=== PATIENT | male | born 1940 | race Two or more races ===

== ENCOUNTER 2019-03-06 04:42 | Emergency (ER) | payer OTHER ==
[~2019-03-06] VITALS: Ht 160 cm; Wt 71.7 kg
[2019-03-06 04:43] VITALS: Ht 160 cm; Wt 71.7 kg
[2019-03-06 05:24] LABS: BASOPHIL % 0.8 % (0-2); PLATELET COUNT 236 x10^3mcL (130-400)
[2019-03-06 05:25] LABS: RED CELL DISTRIBUTION WIDTH 15.1 % (11.5-14.5)
[2019-03-06 05:34] LABS: CALCIUM 8.3 mg/dL (8.5-10.1); CARBON DIOXIDE 24.9 mmol/L (21-32); CHLORIDE SERUM 94 mmol/L (98-107); CREATININE SERUM 0.9 mg/dL (0.7-1.3); GLUCOSE SERUM 189 mg/dL (74-106); POTASSIUM SERUM 3.5 mmol/L (3.5-5.1); SODIUM SERUM 128 mmol/L (136-145)
[2019-03-06 05:38] LABS: ALBUMIN 3.4 g/dL (3.4-5.0); ALKALINE PHOSPHATASE 85 U/L (46-116); ALT/SGPT 30 U/L (16-63); AST/SGOT 20 U/L (15-37); BILIRUBIN TOTAL 0.4 mg/dL (0.20-1.00); TOTAL PROTEIN, SERUM 7.2 g/dL (6.4-8.2)
[2019-03-06 07:34] VITALS: BP 168/73
== END 2019-03-06 07:34 | disposition home or self-care (01) ==
LOC: ED 04:42
DX: R12 Heartburn (principal)
CPT/HCPCS: 36415; J7512

== ENCOUNTER 2019-08-31 11:14 | Emergency (ER) | payer OTHER ==
[~2019-08-31] VITALS: Ht 154.9 cm; Wt 68.5 kg
[2019-08-31 11:31] VITALS: Ht 154.9 cm; Wt 68.5 kg
[2019-08-31 12:49] LABS: BASOPHIL % 0.4 % (0-2); PLATELET COUNT 226 x10^3mcL (130-400)
[2019-08-31 12:50] LABS: RED CELL DISTRIBUTION WIDTH 15.7 % (11.5-14.5)
[2019-08-31 13:03] LABS: ALBUMIN 3.9 g/dL (3.4-5.0); ALKALINE PHOSPHATASE 91 U/L (46-116); ALT/SGPT 24 U/L (16-63); AST/SGOT 14 U/L (15-37); BILIRUBIN TOTAL 0.44 mg/dL (0.20-1.00); CALCIUM 8.8 mg/dL (8.5-10.1); CARBON DIOXIDE 28.3 mmol/L (21-32); CHLORIDE SERUM 95 mmol/L (98-107); CREATININE SERUM 1.1 mg/dL (0.7-1.3); GLUCOSE SERUM 164 mg/dL (74-106); LIPASE 21 IU/L (73-393); POTASSIUM SERUM 3.9 mmol/L (3.5-5.1); SODIUM SERUM 129 mmol/L (136-145); T4(THYROXINE) 8.1 ug/dL (4.7-13.3); TOTAL PROTEIN, SERUM 7.9 g/dL (6.4-8.2)
[2019-08-31 13:18] LABS: CHOLESTEROL 125 mg/dL (<200); HDL CHOLESTEROL 30 mg/dL (40-60)
[2019-08-31 13:54] LABS: UA SPECIFIC GRAVITY <=1.005 (1.005-1.035); microscopic required? YES; urine erythrocyte 1+ (NEGATIVE)
[2019-08-31 14:07] LABS: AMPHETAMINE QUAL UR NONE DETECTED (See below)
[2019-08-31 16:08] VITALS: BP 141/66
== END 2019-08-31 16:08 | disposition home or self-care (01) ==
LOC: ED 11:14
PROVIDERS: Emergency Medicine
DX: G51.0 Bell's palsy (principal); E11.65 Type 2 diabetes mellitus with hyperglycemia; I10 Essential (primary) hypertension; E78.00 Pure hypercholesterolemia, unspecified; I25.810 Atherosclerosis of coronary artery bypass graft(s) without angina pectoris; F17.210 Nicotine dependence, cigarettes, uncomplicated
CPT/HCPCS: 82962; 83880; Q0092

== ENCOUNTER 2019-11-22 01:07 | Emergency (ER) | payer OTHER ==
[~2019-11-22] VITALS: Ht 160 cm; Wt 61.7 kg
[2019-11-22 01:10] VITALS: Ht 160 cm; Wt 61.7 kg
[2019-11-22 01:59] LABS: microscopic required? YES; urine erythrocyte TRACE (NEGATIVE)
[2019-11-22 03:03] VITALS: BP 133/55
== END 2019-11-22 03:03 | disposition home or self-care (01) ==
LOC: ED 01:07
PROVIDERS: Emergency Medicine
DX: N39.0 Urinary tract infection, site not specified (principal); I10 Essential (primary) hypertension; E11.9 Type 2 diabetes mellitus without complications; E78.00 Pure hypercholesterolemia, unspecified
CPT/HCPCS: J0696

== ENCOUNTER 2019-11-22 07:53 | Emergency (ER) | payer OTHER ==
[~2019-11-22] VITALS: Ht 154.9 cm; Wt 60.8 kg
[2019-11-22 08:01] VITALS: Ht 154.9 cm; Wt 60.8 kg
[2019-11-22 09:38] VITALS: BP 149/68
== END 2019-11-22 09:38 | disposition home or self-care (01) ==
LOC: ED 07:53
DX: N39.0 Urinary tract infection, site not specified (principal); I10 Essential (primary) hypertension; E11.9 Type 2 diabetes mellitus without complications; E78.00 Pure hypercholesterolemia, unspecified

== ENCOUNTER → 2020-05-20 | Outpatient (CLI) | payer OTHER | END | disposition home or self-care (01) | LOC: US 13:25 | PROVIDERS: ATTEND Family Medicine | PROC: B44HZZZ Ultrasonography of Bilateral Lower Extremity Arteries (ICD-10-PCS; principal; 2020-05-20) | DX: R25.2 Cramp and spasm (principal) ==